=== PATIENT | female | born 1975 | race Caucasian/White ===

== ENCOUNTER 2020-10-11 16:26 | Observation (INO) ==
[2020-10-11] MEDS ORDERED: Naloxone 0.4 MG/ML INJ IVP PRN (20:32)
[2020-10-11] MEDS ORDERED: Acetaminophen 325 MG TABLET PO PRN (20:32)
[2020-10-11] MEDS ORDERED: Ondansetron 4 MG/2 ML VIAL IVP PRN (20:32)
[2020-10-11] MEDS: *HR* OxyCODONE Immed Rel 5 MG TABLET PO PRN (21:02)
[2020-10-11] MEDS ORDERED: D5% in Water 1,000 ML IVC PRN (23:38)
[2020-10-11] MEDS ORDERED: *HR* Dextrose 50 % in Water (Vial) 50 ML VIAL IVP PRN (23:38)
[2020-10-11] MEDS ORDERED: Dextrose Gel 15 GM/37.5 ML TUBE PO PRN ×2 (23:38)
[2020-10-11] MEDS ORDERED: Pregabalin 50 MG CAPSULE PO ONE (23:44)
[2020-10-11] MEDS ORDERED: Insulin LISPRO 300 UNITS/3 ML VIAL SUBQ SCH (23:45)
[2020-10-12] MEDS: *HR* Heparin 5,000 UNIT/ML VIAL SQ SCH ×4 (00:11→21:28)
[2020-10-12] MEDS ORDERED: 0.9 % Sodium Chloride 1,000 ML IVC SCH ×2 (00:30→10:40)
[2020-10-12 00:52] LABS: Basophils # 0.1 K/mcL (0.0-0.2); Basophils % 0.4 %; Eosinophils # 0.2 K/mcL (0.0-0.6); Eosinophils % 1.2 %; Hematocrit 41.9 % (35.3-44.9); Hemoglobin 13.4 g/dL (11.5-15.4); Immature Granulocytes % 1.3 % (0-4); Lymphocytes % 13.2 %; Mean Corpuscular Hemoglobin 28.8 pg (28.0-33.3); Mean Corpuscular Volume 90.1 fL (83.0-100.0); Mean Platelet Volume 9.7 fL (9.4-12.4); Monocytes # 0.9 K/mcL (0.0-1.3); Neutrophils # 11.9 K/mcL (1.6-8.9); Platelet Count 291 K/mcL (140-400); Red Blood Count 4.65 M/mcL (3.82-4.97); Red Cell Distribution Width 14.6 % (11.5-14.5); Segmented Neutrophils % 77.9 %; White Blood Count 15.3 K/mcL (4.3-11.1)
[2020-10-12 01:02] LABS: BUN/Creatinine Ratio 10 (6-26); Blood Urea Nitrogen 12 mg/dL (6-20); Calcium 8.3 mg/dL (8.6-10.3); Carbon Dioxide 27 mEq/L (23-29); Chloride 101 mEq/L (98-107); Glucose 229 mg/dL (70-105); Osmolality,Calculated 291 (280-300); Potassium 3.7 mEq/L (3.5-5.1); Sodium 137 mEq/L (136-145); eGFR For African Americans > 60 (> 60); eGFR For Non-African Americans 50 (> 60)
[2020-10-12] MEDS: *HR* OxyCODONE Immed Rel 5 MG TABLET PO PRN ×2 (05:36→22:53)
[2020-10-12] MEDS ORDERED: Insulin LISPRO 300 UNITS/3 ML VIAL SUBQ SCH ×2 (06:00→12:00)
[2020-10-12] MEDS ORDERED: Isovue-300 50ML VIAL ONE (07:09)
[2020-10-12] MEDS ORDERED: *HR* HYDROmorphone (PF) 1 MG/ML SYRINGE IVP PRN (07:40)
[2020-10-12] MEDS ORDERED: *HR* HYDROmorphone 2 MG TABLET PO PRN (07:40)
[2020-10-12] MEDS ORDERED: *HR* Labetalol 20 MG/4 ML SYRINGE IVP PRN (07:40)
[2020-10-12] MEDS ORDERED: Pregabalin 75 MG CAPSULE PO ONE (07:40)
[2020-10-12] MEDS ORDERED: Famotidine 20 MG/2 ML VIAL IVP ONE (07:40)
[2020-10-12] MEDS ORDERED: *HR* OxyCODONE Immed Rel 5 MG TABLET PO PRN (07:40)
[2020-10-12] MEDS ORDERED: Acetaminophen IV 1,000 MG/100 ML BAG IVPB ONE ×2 (07:40→07:56)
[2020-10-12] MEDS ORDERED: *HR* Propofol 200 MG/20 ML VIAL IVP ONE (07:44)
[2020-10-12] MEDS ORDERED: *HR* Midazolam HCl 2 MG/2 ML VIAL ONE (07:44)
[2020-10-12] MEDS ORDERED: Lidocaine -MPF 2% 2 ML VIAL ONE (07:44)
[2020-10-12] MEDS ORDERED: Lidocaine HCL 4 ML Topical Solution (Laryng-O-Jet Kit Sterile Pak) TP ONE (07:51)
[2020-10-12] MEDS ORDERED: Famotidine 20 MG/2 ML VIAL ONE (07:57)
[2020-10-12] MEDS ORDERED: levoFLOXacin 500 MG/100 ML 500 MG/100 ML BAG IVPB ONE (08:14)
[2020-10-12] MEDS ORDERED: Ondansetron 4 MG/2 ML VIAL ONE (08:22)
[2020-10-12] MEDS ORDERED: Albuterol 2.5 MG/3 ML NEBULIZER IH ONE (09:36)
[2020-10-12] MEDS ORDERED: Albuterol 2.5 MG/3 ML NEBULIZER ONE (09:38)
[2020-10-12] MEDS ORDERED: Acetaminophen 325 MG TABLET PO PRN (10:40)
[2020-10-12] MEDS ORDERED: Dextrose Gel 15 GM/37.5 ML TUBE PO PRN ×2 (10:40)
[2020-10-12] MEDS ORDERED: Naloxone 0.4 MG/ML INJ IVP PRN (10:40)
[2020-10-12] MEDS ORDERED: Ondansetron 4 MG/2 ML VIAL IVP PRN (10:40)
[2020-10-12] MEDS ORDERED: *HR* Dextrose 50 % in Water (Vial) 50 ML VIAL IVP PRN (10:40)
[2020-10-12] MEDS ORDERED: D5% in Water 1,000 ML IVC PRN (10:40)
[2020-10-12] MEDS ORDERED: Albuterol 2.5 MG/3 ML NEBULIZER IH PRN (14:26)
[2020-10-12 16:37] LABS: Bilirubin,Urine Negative (Negative); Clarity,Urine Cloudy (Clear); Color,Urine Red (Yellow); Glucose,Urine (UA) >=1000 mg/dL (Normal); Ketones,Urine Negative (Negative); Specific Gravity,Urine 1.022 (1.010-1.025)
[2020-10-12 16:38] LABS: Blood,Urine Large (Negative); Leukocyte Esterase,Urine Large (Negative); Nitrite,Urine Negative (Negative); PH,Urine 6.5 pH Units (5.0-8.0); Protein,Urine 200 mg/dL (Neg-Trace); Urobilinogen,Urine Normal (Normal)
[2020-10-12] MEDS: Insulin LISPRO 300 UNITS/3 ML VIAL SUBQ SCH ×2 (16:54→21:22)
[2020-10-12] MEDS ORDERED: Insulin DETEMIR 100 UNIT/ML X5UNITS SUBQ SCH (21:00)
[2020-10-12] MEDS: Pregabalin 50 MG CAPSULE PO SCH (21:22)
[2020-10-13] MEDS: *HR* Heparin 5,000 UNIT/ML VIAL SQ SCH (05:46)
[2020-10-13] MEDS ORDERED: Levothyroxine 25 MCG TABLET PO SCH (06:30)
[2020-10-13 07:04] VITALS: TEMP 97.4
[2020-10-13] MEDS: *HR* OxyCODONE Immed Rel 5 MG TABLET PO PRN (07:49)
[2020-10-13] MEDS ORDERED: Insulin LISPRO 300 UNITS/3 ML VIAL SUBQ SCH (08:00)
[2020-10-13] MEDS ORDERED: metOLazone 2.5 MG TABLET PO SCH (08:30)
[2020-10-13] MEDS ORDERED: Loratadine 10 MG TABLET PO SCH (09:00)
[2020-10-13] MEDS ORDERED: levoFLOXacin 750 MG TABLET PO SCH (09:00)
[2020-10-13] MEDS ORDERED: Insulin DETEMIR 100 UNIT/ML X5UNITS SUBQ SCH (09:00)
[2020-10-13] MEDS ORDERED: Metoprolol XL (24 HR) Succ 50 MG TAB.ER.24H PO SCH (09:00)
[2020-10-13] MEDS ORDERED: Spironolactone 25 MG TABLET PO SCH (09:00)
[2020-10-13] MEDS ORDERED: Torsemide 20 MG TABLET PO SCH (09:00)
[2020-10-13] MEDS ORDERED: cloNIDine HCL 0.1 MG TABLET PO SCH (09:00)
[2020-10-13] MEDS: Insulin LISPRO 300 UNITS/3 ML VIAL SUBQ SCH (09:10)
[2020-10-13] MEDS: Pregabalin 50 MG CAPSULE PO SCH (09:13)
[2020-10-13 10:57] LABS: Estimated Average Glucose 358 mg/dl; Hemoglobin A1C 14.1 %
[2020-10-13 11:17] VITALS: BP 127/84; PULSE 78; O2SAT 91
[2020-10-13 12:16] LABS: Hematocrit 41.5 % (35.3-44.9); Hemoglobin 13.2 g/dL (11.5-15.4); Mean Corpuscular HGB Conc 31.8 g/dL (31.6-35.5); Mean Corpuscular Hemoglobin 28.6 pg (28.0-33.3); Mean Corpuscular Volume 89.8 fL (83.0-100.0); Mean Platelet Volume 10.1 fL (9.4-12.4); Platelet Count 325 K/mcL (140-400); Red Blood Count 4.62 M/mcL (3.82-4.97); Red Cell Distribution Width 14.5 % (11.5-14.5); White Blood Count 15.1 K/mcL (4.3-11.1)
[2020-10-18 18:49] LABS: Calculi Mass 14 mg
== END 2020-10-13 12:38 | disposition home or self-care (01) ==
LOC: 3ANU → SUATTDRO 20:06
PROVIDERS: ADMIT Internal Medicine; ATTEND Internal Medicine